=== PATIENT | male | born 1955 ===

== ENCOUNTER 2017-10-24 13:08 | Emergency (ER) | payer SELFPAY ==
[2017-10-24 13:17] VITALS: BP 140/85; PULSE 83; RESP 20; TEMP 98.8; O2SAT 99
[2017-10-24] MEDS ORDERED: Fluorescein 1 mg Ophthalmic Strip OS ONE (13:27)
[2017-10-24] MEDS ORDERED: Tetracaine 0.5% Ophth 2 ML BOTTLE OS ONE (13:28)
[2017-10-24] MEDS ORDERED: Fluorescein 1 mg Ophthalmic Strip ONE (13:35)
[2017-10-24] MEDS ORDERED: Erythromycin 0.5% Ophth Oint 1 APPLIC/3.5 G OS STA (13:42)
--- NOTE | 2017-10-24 13:44 | C.PDOC ---
History Of Present Illness 62 year old male patient presents to the ER with c/o itchy and red left eye. Patient reports he has crusting this morning around his eye and currently has discharge. Patient reports he has had these symptoms for x1 day. Denies headache , change in vision, fever and chills. Chief Complaint (Nursing): Eye Problem History Per: Patient History/Exam Limitations: no limitations Onset/Duration Of Symptoms: Days (x1) Current Symptoms Are (Timing): Still Present Associated Symptoms: Itching, Discharge From Eye Past Medical History Reviewed: Historical Data, Nursing Documentation, Vital Signs Vital Signs: Last Vital Signs Temp 98.8 F 10/24/17 13:15 Pulse 83 10/24/17 13:15 Resp 20 10/24/17 13:15 BP 140/85 10/24/17 13:15 Pulse Ox 99 10/24/17 13:58 - Medical History PMH: HTN Family History: States: No Known Family Hx - Social History Hx Alcohol Use: Yes Hx Substance Use: No - Immunization History Hx Tetanus Toxoid Vaccination: No Hx Influenza Vaccination: No Hx Pneumococcal Vaccination: No Review Of Systems Except As Marked, All Systems Reviewed And Found Negative. Constitutional: Negative for: Fever, Chills Eyes: Positive for: Redness, Other (itchy with discharge and crusting). Negative for: Vision Change Neurological: Negative for: Headache Physical Exam - Physical Exam Appears: Non-toxic, No Acute Distress Skin: Normal Color, Warm, Dry Head: Normacephalic Eye(s): bilateral: PERRL, EOMI, left: Other (erythema; visual acuity intact) Oral Mucosa: Moist Neurological/Psych: Oriented x3, Normal Speech ED Course And Treatment O2 Sat by Pulse Oximetry: 99 (RA) Pulse Ox Interpretation: Normal Medical Decision Making Medical Decision Making: Impression: Bacteria conjunctivitis on left eye Plans: -- erythromycin -- [id number] -- tetracaine Reassess: Disposition - Disposition Referrals: Soham Watt [Staff Provider] - Disposition: HOME/ ROUTINE Disposition Time: 13:57 Condition: GOOD Prescriptions: Erythromycin 0.5% [Erythromycin] 1 applic OS QID #1 tube Instructions: Conjunctivitis (Pinkeye) Forms: [employer] (Sammarinese) - Clinical Impression Clinical Impression: Conjunctivitis - Scribe Statement The provider has reviewed the documentation as recorded by the Scribe Younger Do Provider Attestation: All medical record entries made by the Delfino were at my direction and personally dictated by me. I have reviewed the chart and agree that the record accurately reflects my personal performance of the history, physical exam, medical decision making, and the department course for this patient. I have also personally directed, reviewed, and agree with the discharge instructions and disposition.
[2017-10-24] MEDS ORDERED: Erythromycin 0.5% Ophth Oint 1 APPLIC/3.5 G ONE (13:55)
== END 2017-10-24 13:57 | disposition home or self-care (01) ==
LOC: C.ER 13:08
DX: H10.9 Unspecified conjunctivitis (principal)

== ENCOUNTER 2017-12-15 10:18 | Emergency (ER) | payer SELFPAY ==
[2017-12-15 10:34] VITALS: BP 119/82; PULSE 97; TEMP 98.7; O2SAT 98
--- NOTE | 2017-12-15 10:42 | C.PDOC ---
History Of Present Illness 62-year-old male, presents to the emergency department for evaluation of left buttock pain that radiates to left hip/thigh and left knee x2 days. patient describes pain is localized, worse with movement. 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 Denies fever, chills, abd. pain, N/V, UTI sx, saddle anaesthesia, bladder/bowel incontinence, denies weakness to B/L lEs, or any other associated symptoms. Ambulate to Ed for evaluation, not in any apparent distress Time Seen by Provider: 12/15/17 10:35 Chief Complaint (Nursing): Lower Extremity Problem/Injury History Per: Patient History/Exam Limitations: no limitations Current Symptoms Are (Timing): Still Present Severity: Moderate Past Medical History Reviewed: Historical Data, Nursing Documentation, Vital Signs Vital Signs: Last Vital Signs Temp 98.7 F 12/15/17 10:25 Pulse 97 H 12/15/17 10:25 Resp 19 12/15/17 10:25 BP 119/82 12/15/17 10:25 Pulse Ox 98 12/15/17 10:25 - Medical History PMH: HTN Family History: States: No Known Family Hx - Social History Hx Alcohol Use: Yes Hx Substance Use: No - Immunization History Hx Tetanus Toxoid Vaccination: No Hx Influenza Vaccination: No Hx Pneumococcal Vaccination: No Review Of Systems Constitutional: Negative for: Fever, Chills Gastrointestinal: Negative for: Vomiting Genitourinary: Negative for: Incontinence Musculoskeletal: Positive for: Back Pain, Leg Pain Skin: Negative for: Rash Neurological: Negative for: Weakness, Numbness Physical Exam - Physical Exam Appears: Well, Non-toxic, No Acute Distress Skin: Normal Color, Warm, Dry, No Rash, No Ecchymosis Eye(s): bilateral: PERRL Nose: Normal Oral Mucosa: Moist Lips: Normal Appearing Throat: No Erythema, No Drooling Neck: Normal ROM, Supple Gastrointestinal/Abdominal: Soft, No Tenderness, No Distention, No Guarding Back: No CVA Tenderness, No Vertebral Tenderness, Muscle Spasm (mild left lumbar paraspinal), Paraspinal Tenderness (Left lumbar, left glutteal area overlying sciatica nerves down to left hip and left laeral thigh, no skin changes.), No Straight Leg Raising Extremity: Normal ROM, No Tenderness, No Calf Tenderness (B/L), No Deformity, No Swelling, Other (Left gluteal tenderness) Extremity: Bilateral: Atraumatic Neurological/Psych: Oriented x3, Normal Speech, Normal Motor, Normal Sensation, Normal Reflexes ED Course And Treatment O2 Sat by Pulse Oximetry: 98 Pulse Ox Interpretation: Normal (RA) Progress Note: On re-eval, pt is afebrile, hemodynamicaly stable. non-toxic. Ambulatory in Ed with stable gait. Abd: benign, (-) guarding, (-) rebound. back: (-) CVA tenderness. neurologicaly intact. Pt has clinical findings c/w left sided sciatica. Pt advised. ref. to f/u with PMD in 2-3 days for re-eval. return to Ed if any worsening or new changes. Medical Decision Making Medical Decision Making: Plan: * Tramadol, Ibuprofen * Reassess and Disposition Disposition Counseled Patient/Family Regarding: Diagnosis, Need For Followup, Rx Given - Disposition Referrals: Chadd Rojo [Staff Provider] - Disposition: HOME/ ROUTINE Disposition Time: 10:41 Condition: STABLE Additional Instructions: Light duty to lower back, avoid heavy lifting take pain medication as need Follow up with PMD in 2-3 days for re-evaluation. return if any new changes. Prescriptions: Gabapentin [Neurontin] 300 mg PO HS #10 cap Ibuprofen [Motrin Tab] 600 mg PO BID #20 tab Methocarbamol [Robaxin] 500 mg PO TID #14 tab Instructions: Sciatica Forms: [facility] (Bur[place]ian), Work Excuse Print Language: K[place] - Clinical Impression Clinical Impression: Sciatica - Scribe Statement The provider has reviewed the documentation as recorded by the Scribe (Rodo Garcia) All medical record entries made by the Scribe were at my direction and personally dictated by me. I have reviewed the chart and agree that the record accurately reflects my personal performance of the history, physical exam, medical decision making, and the department course for this patient. I have also personally directed, reviewed, and agree with the discharge instructions and disposition.
[2017-12-15 11:01] VITALS: RESP 18
== END 2017-12-15 10:59 | disposition home or self-care (01) ==
LOC: C.ER 10:18
DX: M54.30 Sciatica, unspecified side (principal)